=== PATIENT | male | born 2000 | race African-American/Black ===

== ENCOUNTER 2020-10-06 12:08 | Emergency (ER) | payer OTHER ==
[~2020-10-06 12:08] MED LIST: BETAMETH DIP0.052 EX; DIMETAP1 OR
[2020-10-06 14:33] VITALS: BP 129/81
== END 2020-10-06 14:33 | disposition home or self-care (01) ==
LOC: ED 12:08
DX: S01.81XA Laceration without foreign body of other part of head, initial encounter (principal); Y00.XXXA Assault by blunt object, initial encounter; Y92.009 Unspecified place in unspecified non-institutional (private) residence as the place of occurrence of the external cause